=== PATIENT | female | born 1950 | race Caucasian/White ===

== ENCOUNTER 2020-04-05 06:00 | Day surgery (SDC) | payer MEDICARE, BC ==
[2020-04-05] MEDS ORDERED: fentaNYL 100 MCG/2 ML SDV ONE (07:09)
[2020-04-05] MEDS ORDERED: Propofol 200 MG/20 ML SDV ONE ×2 (07:09→08:04)
[2020-04-05] MEDS ORDERED: Midazolam 1 MG/ML 2 ML SDV ONE (07:09)
[2020-04-05] MEDS ORDERED: Dextrose 5%-Lactated Ringers 1,000 ML IV SCH (07:30)
--- NOTE | 2020-04-14 18:40 | OR ---
DATE OF PROCEDURE: 04/05/2020 SURGEON: Philippe Ramirez MD PREOPERATIVE DIAGNOSIS: Indications for screening colonoscopy. POSTOPERATIVE DIAGNOSIS: Normal colonoscopic examination with somewhat marginal prep. OPERATIVE PROCEDURE: Flexible colonoscopy. ANESTHESIA: IV sedation. INDICATION FOR PROCEDURE: A 69-year-old female presenting for screening colonoscopy. She has neither personal or family history of colonic neoplasia. Plan is to proceed with colonoscopy with biopsies and/or polypectomy as indicated. Potential risks including bleeding and perforation were discussed, and the patient wishes to proceed. DETAILS OF PROCEDURE: The patient was taken to the operative room, placed in a left lateral decubitus position. IV sedation was administered, after which the initial digital rectal exam was performed and was unremarkable. Colonoscope was then passed into the rectum with retroflexion revealing uncomplicated hemorrhoidal columns. Scope was then passed to the level of the cecum. The prep was somewhat marginal such that small polyps could potentially be missed. Otherwise, there was no other specific pathology identified. No diverticula. No areas of colitis. No polyps or other signs of neoplasia were seen. Scope was then withdrawn and the procedure then concluded. Apparently, this patient will be in a 10-year followup cycle. Given this was somewhat marginal prep with possibility of missing some small polyps, recommendation would be to repeat the colonoscopy in 5 years. Philippe Ramirez MD /[id number]
== END 2020-04-05 09:40 | disposition home or self-care (01) ==
LOC: JP.SDS 06:00
PROVIDERS: ATTEND Surgery
DX: Z12.11 Encounter for screening for malignant neoplasm of colon (principal); K64.9 Unspecified hemorrhoids; E11.9 Type 2 diabetes mellitus without complications
CPT/HCPCS: J2250; J2704; J3010; J7121

== ENCOUNTER 2022-01-19 14:45 | Emergency (ER) | payer MEDICARE, BC ==
[2022-01-19] MEDS ORDERED: Sodium Chloride 0.9% 500 ML IV SCH ×2 (15:45→17:00)
[2022-01-19 16:27] LABS: ESTIMATED GFR 68 mL/min (>60)
[2022-01-19] MEDS ORDERED: Meclizine 25 MG Tab PO ONE (17:42)
== END 2022-01-19 18:29 | disposition home or self-care (01) ==
LOC: JP.ED 14:45
DX: R42 Dizziness and giddiness (principal); I10 Essential (primary) hypertension; E03.9 Hypothyroidism, unspecified; Z88.0 Allergy status to penicillin; Z91.048 Other nonmedicinal substance allergy status; Z88.1 Allergy status to other antibiotic agents; Z79.82 Long term (current) use of aspirin; Z79.899 Other long term (current) drug therapy; Z20.822 Contact with and (suspected) exposure to COVID-19
CPT/HCPCS: 36415; 70450; 80053; 84484; 85025; 93005; 96360; 96361; 99284; A9270; J7030; U0002